=== PATIENT | female | born 1955 | race Caucasian/White ===

== ENCOUNTER 2021-04-24 10:03 | Inpatient (IN) | payer MEDICARE, BC ==
[2021-04-24] MEDS ORDERED: Albuterol/Ipratropium 3.0-0.5 MG/3 ML Neb Soln NEB ONE (10:15)
[2021-04-24] MEDS ORDERED: methylPREDNISolone Sodium Succinate 125 MG/2 ML SDV IVPUSH ONE (10:15)
--- NOTE | 2021-04-24 10:33 | EDM.PDOC ---
ED HPI GENERAL MEDICAL PROBLEM - General Chief Complaint: Respiratory Problem Stated Complaint: AMBULANCE Time Seen by Provider: 04/24/21 10:10 Source of Information: Reports: Patient, Provider (Nunu Gordon NP), RN, RN Notes Reviewed History Limitations: Reports: No Limitations - History of Present Illness INITIAL COMMENTS - FREE TEXT/NARRATIVE: Esau is a 66 y/o female who presents to the ED from [facility] at the request of her PCP for productive cough and hypoxia. The patient reports her symptoms began 6 days ago and have maintained in that time. She tested negative for COVID today and the clinic, but was noted to have oxygen saturation of 84 on RA while in the clinic. She denies chest pain, but notes she was experiencing some chest discomfort last week. She attest to shortness of breath and abdominal pain with cough. She denies fever, shaking chills sore throat, congestion, palpitations, dyspepsia, nausea, or vomiting. She has taken no PRN medications for her symptoms. She does not take inhalers or nebulizers. The patient attest to smoking approximately one pack per day; she notes a reduction in her habit since her symptoms started. She denies alcohol or recreational drug use. - Related Data Allergies Allergy/AdvReac Type Severity Reaction Status Date / Time paroxetine [From Paxil] Allergy Diarrhea Verified 04/24/21 13:22 Sulfa (Sulfonamide Allergy Hives Verified 04/24/21 13:22 Antibiotics) Home Meds: Home Meds Ascorbic Acid [Vitamin C] 1,000 mg PO DAILY 04/24/21 [History] Biotin 5 mg PO DAILY 04/24/21 [History] Celecoxib [CeleBREX] 200 mg PO BID PRN 04/24/21 [History] Cholecalciferol (Vitamin D3) [Vitamin D3] 5,000 unit PO DAILY 04/24/21 [History] Metoprolol Tartrate 50 mg PO BID 04/24/21 [History] Mv-Mn/Folic AC/Calcium/Vit K1 [Women 50 Plus Multivit Adv Tab] 1 each PO DAILY 04/24/21 [History] Oxybutynin Chloride [Oxybutynin Chloride ER] 10 mg PO DAILY 04/24/21 [History] Pantoprazole Sodium [Protonix] 40 mg PO DAILY 04/24/21 [History] Pravastatin [Pravachol] 20 mg PO DAILY 04/24/21 [History] Pravastatin [Pravachol] 40 mg PO DAILY 04/24/21 [History] Rivaroxaban [Xarelto] 10 mg PO DAILY 04/24/21 [History] Past Medical History HEENT History: Reports: None Cardiovascular History: Reports: High Cholesterol, Hypertension, Other (See Below) Other Cardiovascular History: anticoagulation Respiratory History: Reports: None Gastrointestinal History: Reports: None Genitourinary History: Reports: None REAL ESTATE PROCESSOR History: Reports: None Psychiatric History: Reports: None Oncologic (Cancer) History: Reports: None - Infectious Disease History Infectious Disease History: Reports: None - Past Surgical History Head Surgeries/Procedures: Reports: None Musculoskeletal Surgical History: Reports: Arthroscopic Knee Social & Family History - Tobacco Use Tobacco Use Status *Q: Heavy Tobacco User Years of Tobacco use: 30 Packs/Tins Daily: 1 - Recreational Drug Use Recreational Drug Use: No ED ROS GENERAL - Review of Systems Review Of Systems: Comprehensive ROS is negative, except as noted in HPI. ED EXAM, GENERAL - Physical Exam Exam: See Below Exam Limited By: No Limitations General Appearance: Alert, No Apparent Distress, Obese Eye Exam: Bilateral Eye: EOMI, Normal Inspection, PERRL (3mm) Ears: Normal External Exam, Normal Canal, Hearing Grossly Normal, Normal TMs Nose: Normal Inspection, Normal Mucosa, No Blood Throat/Mouth: Normal Voice, No Airway Compromise. No: Normal Oropharynx (Dry mucous membranes) Head: Atraumatic, Normocephalic Neck: Normal Inspection, Supple, Non-Tender, Full Range of Motion. No: Lymphadenopathy (L), Lymphadenopathy (R) Respiratory/Chest: Chest Non-Tender, Respiratory Distress (1-2 words while speaking), Rhonchi, Wheezing (Expiratory diffuse), Accessory Muscle Use. No: No Accessory Muscle Use, Stridor, Retractions, Splinting, Prolonged Expiration Cardiovascular: Normal Peripheral Pulses, Regular Rate, Rhythm, No Gallop, No JVD, No Murmur. No: No Edema Peripheral Pulses: 2+: Radial (L), Radial (R) GI/Abdominal: Normal Bowel Sounds, Non-Tender, No Distention, No Abnormal Bruit, No Mass, Pelvis Stable (Female) Exam: Deferred Rectal (Female) Exam: Deferred Back Exam: Normal Inspection, Full Range of Motion Extremities: Normal Range of Motion, Non-Tender, Normal Capillary Refill, Pedal Edema (Trace bilaterally) Neurological: Alert, Oriented, CN II-XII Intact, Normal Cognition, Normal Gait, Normal Reflexes, No Motor/Sensory Deficits Psychiatric: Normal Affect, Normal Mood Skin Exam: Warm, Dry, Intact, Normal Color, No Rash. No: Cyanosis, Ecchymosis, Erythema, Jaundice, Mottled, Pallor, Petechiae Lymphatic: No Adenopathy #1 Interpretation EKG Date: 04/24/21 Time: 10:23 Rhythm: NSR Rate (Beats/Min): 67 Tony: Normal P-Wave: Present QRS: Normal ST-T: Normal QT: Normal NC/PQ Interval: 0.156 Comparison: NA - No Prior EKG EKG Interpretation Comments: NSR; No evidence of acute myocardial ischemia Course - Vital Signs Last Recorded V/S: Last Vital Signs Temp 96.6 F L 04/25/21 08:56 Pulse 92 04/25/21 08:56 Resp 20 04/25/21 08:56 BP 102/52 L 04/25/21 08:56 Pulse Ox 92 L 04/25/21 08:56 - Orders/Labs/Meds Orders: Active Orders 24 hr Category Date Time Status Admission Diagnosis [ADT] Stat ADT 04/24/21 12:19 Ordered Admission Status [Patient Status] [ADT] Routine ADT 04/24/21 12:19 Active Medication Orders Acetaminophen (Acetaminophen 325 Mg Tab) 650 mg PO Q4H PRN PRN Reason: Pain (Mild 1-3)/fever Albuterol/Ipratropium (Albuterol/Ipratropium 3.0-0.5 Mg/3 Ml Neb Soln) 3 ml NEB Q4HRRT [facility], 1928–1983 Admin: 04/25/21 07:24 Dose: 3 ml Documented by: Admin: 04/25/21 03:39 Dose: 3 ml Documented by: Admin: 04/24/21 23:06 Dose: 3 ml Documented by: Admin: 04/24/21 18:48 Dose: 3 ml Documented by: Admin: 04/24/21 14:33 Dose: 3 ml Documented by: DAYNA Celecoxib (Celecoxib 100 Mg Cap) 200 mg PO BID PRN PRN Reason: Pain Furosemide (Furosemide 20 Mg/2 Ml Vial) 20 mg IVPUSH Q8H [facility] Last Admin: 04/25/21 03:48 Dose: 20 mg Documented by: Admin: 04/24/21 19:56 Dose: 20 mg Documented by: NERIS Azithromycin 500 mg/ Sodium (Chloride) 250 mls @ 250 mls/hr IV Q24H [facility] Last Admin: 04/24/21 14:17 Dose: 250 mls/hr Documented by: DAYNA Ceftriaxone Sodium 1 gm/ (Sodium Chloride) 50 mls @ 100 mls/hr IV Q24H [facility] Methylprednisolone Sodium Succinate (Methylprednisolone Sodium Succinate 40 Mg/1 Ml Sdv) 80 mg IVPUSH Q8H [facility] Last Admin: 04/25/21 03:40 Dose: 80 mg Documented by: Admin: 04/24/21 19:50 Dose: 80 mg Documented by: NERIS Miscellaneous Information (Check Nicotine Patch) 1 ea TRDERM BEDTIME [facility] Last Admin: 04/24/21 21:07 Dose: 1 ea Documented by: NERIS Nicotine (Nicotine 14 Mg/24 Hr Patch) 14 mg TRDERM DAILY PRN PRN Reason: Nicotine withdrawal Last Admin: 04/24/21 21:05 Dose: 14 mg Documented by: NERIS Ondansetron HCl (Ondansetron 4 Mg/2 Ml Sdv) 4 mg IVPUSH Q4H PRN PRN Reason: Nausea/Vomiting Oxybutynin Chloride (Oxybutynin 5 Mg Tab.Er) 10 mg PO DAILY [facility] Last Admin: 04/25/21 08:38 Dose: 10 mg Documented by: URI Pantoprazole Sodium (Pantoprazole 40 Mg Tab.Cr) 40 mg PO ACBREAKFAST [facility] Last Admin: 04/25/21 05:05 Dose: 40 mg Documented by: NERIS Pneumococcal Polyvalent Vaccine (Pneumococcal Polyvalent-23 Vaccine 0.5 Ml Sdv) 0.5 ml IM .ONCE ONE Stop: 04/24/21 14:06 Pravastatin Sodium (Pravastatin 20 Mg Tab) 60 mg PO DAILY [facility] Last Admin: 04/25/21 08:38 Dose: 60 mg Documented by: URI Rivaroxaban (Rivaroxaban 10 Mg Tab) 10 mg PO DAILY [facility] Last Admin: 04/25/21 08:38 Dose: 10 mg Documented by: ESPEWAN Sodium Chloride (Sodium Chloride 0.9% 10 Ml Syringe) 10 ml FLUSH ASDIRECTED PRN PRN Reason: Keep Vein Open Last Admin: 04/25/21 03:40 Dose: 10 ml Documented by: Admin: 04/24/21 19:50 Dose: 10 ml Documented by: NERIS Labs: Laboratory Tests 04/24/21 04/24/21 04/24/21 Range/Units 10:18 10:18 10:18 WBC 9.3 (5.0-10.0) 10^3/uL RBC 3.84 L (4.2-5.4) 10^6/uL Hgb 14.3 (12.0-16.0) g/dL Hct 42.5 (37.0-47.0) % MCV 110.7 H (80-100) fL MCH 37.2 H (27.0-34.0) pg MCHC 33.6 (33.0-35.0) g/dL Plt Count 137 L (150-450) 10^3/uL Neut % (Auto) 72.5 (42.2-75.2) % Lymph % (Auto) 16.9 L (20.5-50.1) % [place] % (Auto) 9.1 H (2-8) % Eos % (Auto) 1.1 (1.0-3.0) % Baso % (Auto) 0.4 (0.0-1.0) % Sodium 139 (136-145) mmol/L Potassium 4.1 (3.5-5.1) mmol/L Chloride 98 (98-107) mmol/L Carbon Dioxide 38 H (21-32) mmol/L Anion Gap 7.1 (7-13) mEq/L BUN 7 (7-18) mg/dL Creatinine 0.63 (0.55-1.02) mg/dL Est Cr Clr Drug Dosing TNP Estimated GFR (MDRD) > 60 BUN/Creatinine Ratio 11.1 (No establ ref range) Glucose 114 H (70-99) mg/dL Lactic Acid 0.9 (0.4-2.0) mmol/L Calcium 8.5 (8.5-10.1) mg/dL Magnesium (1.8-2.4) mg/dL Total Bilirubin 0.7 (0.2-1.0) mg/dL AST 30 (15-37) U/L ALT 54 (14-59) U/L Alkaline Phosphatase 78 (46-116) U/L Troponin I High Sens 33 (<=51) pg/mL C-Reactive Protein 23.5 H (0.0-0.9) mg/dL B-Natriuretic Peptide 145 H (0-100) pg/ml Total Protein 6.7 (6.4-8.2) g/dL Albumin 3.0 L (3.4-5.0) g/dL Globulin 3.7 Albumin/Globulin Ratio 0.81 Vitamin B12 (193-986) pg/mL Folate (8.6-58.9) ng/mL Free T4 (0.76-1.46) ng/dL TSH, Ultra Sensitive (0.36-3.74) uIU/mL 04/24/21 Range/Units 10:18 WBC (5.0-10.0) 10^3/uL RBC (4.2-5.4) 10^6/uL Hgb (12.0-16.0) g/dL Hct (37.0-47.0) % MCV (80-100) fL MCH (27.0-34.0) pg MCHC (33.0-35.0) g/dL Plt Count (150-450) 10^3/uL Neut % (Auto) (42.2-75.2) % Lymph % (Auto) (20.5-50.1) % [place] % (Auto) (2-8) % Eos % (Auto) (1.0-3.0) % Baso % (Auto) (0.0-1.0) % Sodium (136-145) mmol/L Potassium (3.5-5.1) mmol/L Chloride (98-107) mmol/L Carbon Dioxide (21-32) mmol/L Anion Gap (7-13) mEq/L BUN (7-18) mg/dL Creatinine (0.55-1.02) mg/dL Est Cr Clr Drug Dosing Estimated GFR (MDRD) BUN/Creatinine Ratio (No establ ref range) Glucose (70-99) mg/dL Lactic Acid (0.4-2.0) mmol/L Calcium (8.5-10.1) mg/dL Magnesium 1.9 (1.8-2.4) mg/dL Total Bilirubin (0.2-1.0) mg/dL AST (15-37) U/L ALT (14-59) U/L Alkaline Phosphatase (46-116) U/L Troponin I High Sens (<=51) pg/mL C-Reactive Protein (0.0-0.9) mg/dL B-Natriuretic Peptide (0-100) pg/ml Total Protein (6.4-8.2) g/dL Albumin (3.4-5.0) g/dL Globulin Albumin/Globulin Ratio Vitamin B12 319 (193-986) pg/mL Folate > 20.0 (8.6-58.9) ng/mL Free T4 1.55 H (0.76-1.46) ng/dL TSH, Ultra Sensitive 2.59 (0.36-3.74) uIU/mL Meds: Medications Generic Name Dose Route Start Last Admin Trade Name Freq PRN Reason Stop Dose Admin Acetaminophen 650 mg 04/24/21 12:55 Acetaminophen 325 Mg Tab PO Q4H PRN Pain (Mild 1-3)/fever Albuterol/Ipratropium 3 ml 04/24/21 15:00 04/25/21 07:24 Albuterol/Ipratropium 3.0-0.5 Mg/3 Ml Neb Soln NEB 3 ml Q4HRRT SANJAY Administration Celecoxib 200 mg 04/24/21 13:40 Celecoxib 100 Mg Cap PO BID PRN Pain Furosemide 20 mg 04/24/21 20:00 04/25/21 03:48 Furosemide 20 Mg/2 Ml Vial IVPUSH 20 mg Q8H SANJAY Administration Azithromycin 500 mg/ Sodium 250 mls @ 250 mls/hr 04/24/21 13:00 04/24/21 14:17 Chloride IV 250 mls/hr Q24H SANJAY Administration Ceftriaxone Sodium 1 gm/ 50 mls @ 100 mls/hr 04/25/21 12:00 Sodium Chloride IV Q24H SANJAY Methylprednisolone Sodium Succinate 80 mg 04/24/21 20:00 04/25/21 03:40 Methylprednisolone Sodium Succinate 40 Mg/1 Ml Sdv IVPUSH 80 mg Q8H SANJAY Administration Miscellaneous Information 1 ea 04/24/21 21:00 04/24/21 21:07 Check Nicotine Patch TRDERM 1 ea BEDTIME SANJAY Administration Nicotine 14 mg 08/23/21 12:59 04/24/21 21:05 Nicotine 14 Mg/24 Hr Patch TRDERM 14 mg DAILY PRN Administration Nicotine withdrawal Ondansetron HCl 4 mg 04/24/21 12:55 Ondansetron 4 Mg/2 Ml Sdv IVPUSH Q4H PRN Nausea/Vomiting Oxybutynin Chloride 10 mg 04/25/21 09:00 04/25/21 08:38 Oxybutynin 5 Mg Tab.Er PO 10 mg DAILY SANJAY Administration Pantoprazole Sodium 40 mg 04/25/21 06:00 04/25/21 05:05 Pantoprazole 40 Mg Tab.Cr PO 40 mg ACBREAKFAST SANJAY Administration Pneumococcal Polyvalent Vaccine 0.5 ml 04/24/21 14:05 Pneumococcal Polyvalent-23 Vaccine 0.5 Ml Sdv IM 04/24/21 14:06 .ONCE ONE Pravastatin Sodium 60 mg 04/25/21 09:00 04/25/21 08:38 Pravastatin 20 Mg Tab PO 60 mg DAILY SANJAY Administration Rivaroxaban 10 mg 04/25/21 09:00 04/25/21 08:38 Rivaroxaban 10 Mg Tab PO 10 mg DAILY SANJAY Administration Sodium Chloride 10 ml 04/24/21 12:55 04/25/21 03:40 Sodium Chloride 0.9% 10 Ml Syringe FLUSH 10 ml ASDIRECTED PRN Administration Keep Vein Open Discontinued Medications Generic Name Dose Route Start Last Admin Trade Name Freq PRN Reason Stop Dose Admin Albuterol/Ipratropium 3 ml 04/24/21 10:15 04/24/21 10:28 Albuterol/Ipratropium 3.0-0.5 Mg/3 Ml Neb Soln NEB 04/24/21 10:16 3 ml ONETIME ONE Administration Furosemide 10 mg 04/24/21 11:20 04/24/21 11:45 Furosemide 20 Mg/2 Ml Vial IVPUSH 04/24/21 11:21 10 mg ONETIME ONE Administration Ceftriaxone Sodium 1 gm/ 50 mls @ 100 mls/hr 04/24/21 12:17 04/24/21 12:32 Sodium Chloride IV 04/24/21 12:46 100 mls/hr ONETIME ONE Administration Iopamidol 100 ml 04/24/21 17:39 04/24/21 17:58 Iopamidol 755 Mg/Ml 100 Ml Bottle IVPUSH 04/24/21 17:40 83 ml ONETIME ONE Administration Methylprednisolone Sodium Succinate 125 mg 04/24/21 10:15 04/24/21 10:35 Methylprednisolone Sodium Succinate 125 Mg/2 Ml Sdv IVPUSH 04/24/21 10:16 125 mg ONETIME ONE Administration Methylprednisolone Sodium Succinate 40 mg 04/24/21 16:00 04/24/21 16:44 Methylprednisolone Sodium Succinate 40 Mg/1 Ml Sdv IVPUSH 40 mg Q8HR SANJAY Administration Non-Formulary Medication 40 mg 04/25/21 09:00 Pravastatin Sodium PO DAILY SANJAY - Radiology Interpretation Free Text/Narrative:: [facility] [place] [facility] Final Radiology Report Call: [phone] assistance Online chat: [email or web address] Name: ESAU VALLADARES Age: 66Years F Date: 04/24/2021 SSN: -- : [id number] Study: CR CHEST 1V FRONTAL Requesting Physician: Andreea Simmons Images: 1 Addl Studies: Provided Clinical History: Shortness of breath; Hypoxia; Productive cough Contrast: Contrast Medium: Contrast Amount: Contrast Method: CONFIDENTIALITY STATEMENT This report is intended only for use by the referring physician, and only in accordance with law. If you received this in error, call [phone]. Page 1 of 1 PROCEDURE INFORMATION: Exam: XR Chest Exam date and time: 04/24/2021 10:20 AM Age: 66 years old Clinical indication: Cough and shortness of breath; Additional info: Shortness of breath; Hypoxia; Productive cough TECHNIQUE: Imaging protocol: XR of the chest. Views: 1 view. COMPARISON: No relevant prior studies available. FINDINGS: Lungs: Poor inspiration. Decreased lung volumes. Bibasilar airspace disease which could be due to atelectasis or pneumonia. Pleural spaces: No pleural effusion or pneumothorax. Heart/Mediastinum: The cardiac silhouette is not enlarged. The mediastinal contours are normal. Bones/joints: Prior proximal left humeral ORIF with a side plate and screws. IMPRESSION: Bibasilar atelectasis versus pneumonia. Thank you for allowing us to participate in the care of your patient. Dictated and Authenticated by: Abrahan Edgar MD 04/24/2021 10:34 AM Central Time ([place] & [place]) - Re-Assessments/Exams Free Text/Narrative Re-Assessment/Exam: 04/24/21 Solu-Medrol 125mg IVP and DuoNeb administered. Labs pending. CXR obtained. Patient continues with oxygen saturation high 80s-low 90s on 2L of O2 via NC, increased to 4L Lasix 10mg IVP administered for bibasilar atelectasis, trace pedal edema, and slightly elevated BNP. Will administer Rocephin 1gm empirically. Case discussed with Dr. Mccann who kindly accepted patient for admission. Findings of examination, lab work, imaging, and conversation with Dr. Mccann reviewed with patient and . Patient and verbalized understanding and agreement with the plan of care. Departure - Departure Time of Disposition: 12:20 Disposition: Admitted As Inpatient 66 Condition: Fair Clinical Impression: Hypoxia, Atelectasis of both lungs, Elevated C-reactive protein (CRP), Cigarette smoker - Discharge Information - My Orders Last 24 Hours: My Active Orders 04/24/21 12:19 Admission Diagnosis [ADT] Stat Admission Status [Patient Status] [ADT] Routine - Assessment/Plan Last 24 Hours: My Active Orders 04/24/21 12:19 Admission Diagnosis [ADT] Stat Admission Status [Patient Status] [ADT] Routine
[2021-04-24 10:47] LABS: ANION GAP 7.1 mEq/L (7-13); CHLORIDE,CL 98 mmol/L (98-107); SODIUM,NA 139 mmol/L (136-145)
[2021-04-24] MEDS ORDERED: Furosemide 20 MG/2 ML VIAL IVPUSH ONE (11:20)
[2021-04-24] MEDS ORDERED: cefTRIAXone 1 GM in Sodium Chloride 0.9% 50 ML IV ONE (12:17)
[2021-04-24] MEDS ORDERED: Acetaminophen 325 MG Tab PO PRN (12:55)
[2021-04-24] MEDS ORDERED: Ondansetron 4 MG/2 ML SDV IVPUSH PRN (12:55)
[2021-04-24] MEDS ORDERED: Nicotine 14 MG/24 Hr Patch TRDERM PRN (12:59)
--- NOTE | 2021-04-24 13:07 | PCM.SN.2 ---
- Free Text/Narrative Note: START OF DOCTOR BARRIE HISTORY AND PHYSICAL / CONSULTATION NOTE Chief Complaint: "I was feeling sick" History of Present Illness: The patient is a 6-year-old female who was directed to the emergency department after being seen in the clinic because of feeling unwell. Upon further questioning the patient Hero that she started feeling unwell approximately 6 days prior to hospitalization at which point time she developed upper respiratory symptoms. She states that she scheduled an appointment with the [facility] upon feeling unwell and was seen by them on this morning of April 24, 2021. After being seen in the clinic she was directed to the emergency department because it was noted that she was hypoxic. Since the time of feeling unwell, the patient admits to rigors, cough which is nonproductive, wheeze, abdominal pain secondary to her cough as well as diarrhea. She denies fever, nausea, vomiting, myalgia, any new peripheral edema, anosmia, dysgeusia. She presents for further evaluation Surgical History: Bilateral cataract surgery, left ankle surgery, left knee surgery, right knee surgery, left shoulder surgery Family History: Cancer, diabetes, coronary artery disease, hypertension, hyperlipidemia Social History: Tobacco: Active smoker Alcohol: Patient drinks 5 drinks 5 days/week. Denies a history of withdrawal Caffeine: Coffee, cola, tea Drugs: Past marijuana use. Denies any other drug use past or present Allergies: Paxil consult Code Status: Full Pertinent Laboratory Results / Pertinent Radiology Results / Pertinent Diagnostic Results / Pertinent Vital Signs: Blood pressure 113/55, pulse 69, respirations 20, temperature 90.1 degrees, patient saturating 94% 2 L, platelet count 107,000, MCV 110.7 Physical Examination: General: -Alert -No acute distress -No dyspnea -No tachypnea -Obese Head: -Atraumatic -Normocephalic Eyes: -Pupils equally round and reactive to light and accommodation -Extraocular muscles intact Neurological: -Cranial nerves II-XII intact Neck: -No jugular venous distention -No thyromegaly -No cervical lymphadenopathy Heart: -Regular rate -Regular rhythm -No murmurs -No gallops -No rubs Lungs: -Bilateral wheeze -No rhonchi -No rales Abdomen: -Normal bowel sounds in all four quadrants -No rebound -No guarding -No tenderness Extremities: -2/4 pulse in all four extremities -No clubbing -No cyanosis -Nonpitting bipedal edema -No calf tenderness present bilaterally -Negative Homans sign bilaterally Musculoskeletal: -5/5 bilateral upper extremity strength -5/5 bilateral lower extremity strength -Sensorium of bilateral upper extremities are equal and intact -Sensorium of bilateral lower extremities are equal and intact Additional Details / Additional Findings / Exceptions / Miscellaneous: Assessment / Plan: Query pneumonia. Azithromycin 500 mg IV daily plus Rocephin 1 g IV daily plus neb every 4 hours Query COPD. The patient has never been formally diagnosed but she has an extensive smoking history. Solu-Medrol 40 mg IV every 8 hours plus DuoNeb every 4 hours Alcohol abuse/overuse. Seizure precautions. If patient exhibits signs/symptoms of withdrawal, I will initiate IV as needed Ativan per CIWA scale Thrombocytopenia. This likely sequelae of her history of alcohol use/overuse. We will monitor platelet count intermittently. Macrocytosis. This likely a sequelae of her history of alcohol use/abuse. Check TSH, free T4, B12, folate Overactive bladder History of DVT GERD. Protonix 40 mg daily Hyperlipidemia Hypertension. Lasix 20 mg IV every 8 hours Obesity. Patient becomes regarding left eye modification Smoker. Patient becomes regarding smoking cessation Peripheral edema. Will monitor patient on telemetry and checks her cardiac enzymes. Daily weight. Strict I's/O. Lasix 20 mg IV every 8 hours. Echocardiogram pending DVT prophylaxis. Bilateral CD Disposition: Anticipate discharge within 24 hours. At the time of mission, the patient's home medications were pending input to the EMR/DHR system. Once their input, they will be reviewed and reconciled END OF DOCTOR EMAMIS HISTORY AND PHYSICAL / CONSULTATION NOTE
[2021-04-24] MEDS ORDERED: Celecoxib 100 MG Cap PO PRN (13:40)
[2021-04-24] MEDS ORDERED: Pneumococcal Polyvalent-23 Vaccine 0.5 ML SDV IM ONE (14:05)
[2021-04-24] MEDS: Azithromycin 500 MG in Sodium Chloride 0.9% 250 ML IV SCH (14:17)
[2021-04-24] MEDS: Albuterol/Ipratropium 3.0-0.5 MG/3 ML Neb Soln NEB SCH ×3 (14:33→23:06)
[2021-04-24] MEDS ORDERED: methylPREDNISolone Sodium Succinate 40 MG/1 ML SDV IVPUSH SCH (16:00)
[2021-04-24 17:23] LABS: O2 DELIVERY DEVICE NASAL CANNULA; PCO2 ARTERIAL 52 mmHg (35-45); PO2 ARTERIAL 63 mmHg (70-100)
[2021-04-24 17:24] LABS: ALLEN TEST POSITIVE; BASE EXCESS ARTERIAL 8 mmol/L ((-2)-(+3)); BICARBONATE,ARTERIAL 33.9 mmol/L (22-26); O2 SATURATION ARTERIAL 89 % (95-100)
[2021-04-24] MEDS ORDERED: Iopamidol 755 Mg/ML 100 ML Bottle IVPUSH ONE (17:39)
--- NOTE | 2021-04-24 18:18 | CT ---
PROCEDURE INFORMATION: Exam: CT Chest With Contrast; Diagnostic Exam date and time: 04/24/2021 5:52 PM Age: 66 years old Clinical indication: Other: Hypoxia, pneumo; Additional info: CT angiogram chest: R/O pe: Dx: Hypoxia, pneumo TECHNIQUE: Imaging protocol: Diagnostic computed tomography of the chest with contrast. Radiation optimization: All CT scans at this facility use at least one of these dose optimization techniques: automated exposure control; mA and/or kV adjustment per patient size (includes targeted exams where dose is matched to clinical indication); or iterative reconstruction. Contrast material: ISOVUE 370; Contrast volume: 83 ml; Contrast route: INTRAVENOUS (IV); COMPARISON: CR Chest 1V Frontal 04/24/2021 10:20 AM FINDINGS: Lungs: Evaluation of the lung parenchyma is somewhat limited due to respiratory motion artifact. There is focal consolidation with air bronchograms in the left lower lobe. There is a thick band of discoid atelectasis in the right middle lobe. There are ground-glass opacities in the right lower lobe. The central airways appear patent. No worrisome pulmonary nodules or masses are identified. Pleural spaces: There are no pleural effusions. There is no pneumothorax. Heart: The heart size is normal. There is no evidence of right ventricular strain. There is no pericardial effusion. There are moderate coronary artery calcifications. Pulmonary arteries: There is excellent opacification of the pulmonary arteries. No MIP projections or volume rendered post processing images were obtained, but there is no convincing evidence for pulmonary embolism. Aorta: The thoracic aorta is normal in caliber and contour. There is no evidence of aneurysm or dissection. Lymph nodes: There are mildly enlarged mediastinal and hilar lymph nodes measuring up to 14 mm in diameter. These are likely reactive. Liver: The liver appears enlarged. There is diffuse fatty infiltration of the liver. Bones/joints: There is normal alignment in the visualized portion of the spine. There has been previous surgical fixation of the proximal left humerus. No acute fractures or aggressive bone lesions are identified. There is an old fracture deformity of the right 9th rib. Soft tissues: The soft tissues are within normal limits. IMPRESSION: 1. No pulmonary embolism is identified. 2. Left lower lobe consolidation suspicious for infectious pneumonia. There is tight atelectasis of the right middle lobe and there are additional patchy areas of probable pneumonitis in the right lower lobe. Fatty infiltration of the liver, a finding which can be due to benign steatosis versus alcoholic or non alcoholic steatohepatitis.
[2021-04-24 19:13] LABS: CORONAVIRUS COVID-19 NAA NEGATIVE (NEGATIVE)
[2021-04-24] MEDS: Sodium Chloride 0.9% 10 ML Syringe FLUSH PRN (19:50)
[2021-04-24] MEDS: methylPREDNISolone Sodium Succinate 40 MG/1 ML SDV IVPUSH SCH (19:50)
[2021-04-24] MEDS: Furosemide 20 MG/2 ML VIAL IVPUSH SCH (19:56)
[2021-04-25] MEDS: Albuterol/Ipratropium 3.0-0.5 MG/3 ML Neb Soln NEB SCH ×5 (03:39→18:45)
[2021-04-25] MEDS: Sodium Chloride 0.9% 10 ML Syringe FLUSH PRN (03:40)
[2021-04-25] MEDS: methylPREDNISolone Sodium Succinate 40 MG/1 ML SDV IVPUSH SCH ×2 (03:40→12:00)
[2021-04-25] MEDS: Furosemide 20 MG/2 ML VIAL IVPUSH SCH ×2 (03:48→11:56)
[2021-04-25] MEDS ORDERED: Pantoprazole 40 MG Tab.CR PO SCH (06:00)
[2021-04-25 06:30] LABS: ANION GAP 6.9 mEq/L (7-13); CHLORIDE,CL 101 mmol/L (98-107); SODIUM,NA 146 mmol/L (136-145)
--- NOTE | 2021-04-25 07:11 | PCM.SN.2 ---
- Free Text/Narrative Note: START OF DOCTOR EMAMIS PROGRESS NOTE Subjective: The patient currently rates her respiratory status as an 8 out of 10 at times her baseline. She denies fever, rigors, nausea, vomiting, cough, wheeze, abdominal pain, chest pain. Upon questioning, she indicates that her legs feel less edematous. I explained to the patient her current medical condition and plan of care and I have answered all of her questions Objective: General: -Somnolent bordering stuporous -No acute distress -No dyspnea -No tachypnea -Obese Heart: -iRegular rate -Regular rhythm -No murmurs -No gallops -No rubs Lungs: -Scant bilateral wheeze -Bilateral rhonchi -No rales Abdomen: -Normal bowel sounds in all four quadrants -No rebound -No guarding -No tenderness Extremities: -2/4 pulse in all four extremities -No clubbing -No cyanosis -Nonpitting bipedal edema improved compared with my examination on April 24, 2021 Additional Details / Additional Findings / Exceptions / Miscellaneous: Pertinent Laboratory Results / Pertinent Radiology Results / Pertinent Diagnostic Results / Pertinent Vital Signs: Heart rate 104 bpm, patient saturating 90% on 5 L Assessment / Plan: Query pneumonia. Azithromycin 500 mg IV daily plus Rocephin 1 g IV daily plus neb every 4 hours Query COPD. The patient has never been formally diagnosed but she has an extensive smoking history. Solu-Medrol 80 mg IV every 8 hours plus DuoNeb every 4 hours Alcohol abuse/overuse. Seizure precautions. If patient exhibits signs/symptoms of withdrawal, I will initiate IV as needed Ativan per CIWA scale Thrombocytopenia. This likely sequelae of her history of alcohol use/overuse. We will monitor platelet count intermittently. Macrocytosis. This likely a sequelae of her history of alcohol use/abuse. Check TSH, free T4, B12, folate Overactive bladder. Oxybutynin ER 10 mg p.o. daily History of DVT. Xarelto 10 mg p.o. daily GERD. Protonix 40 mg daily Hyperlipidemia. Pravastatin 60 mg p.o. nightly Arthritis. Celebrex 200 mg p.o. twice daily Hepatic steatosis Hypertension. Lasix 20 mg IV every 8 hours Obesity. Patient becomes regarding left eye modification Smoker. Patient becomes regarding smoking cessation Peripheral edema. Will monitor patient on telemetry and checks her cardiac enzymes. Daily weight. Strict I's/O. Lasix 20 mg IV every 8 hours. Echocardiogram pending DVT prophylaxis. Xarelto 10 mg p.o. daily Disposition: Anticipate discharge in 48 to 72 hours END OF DOCTOR EMAMIS PROGRESS NOTE
[2021-04-25 07:12] LABS: O2 DELIVERY DEVICE NASAL CANNULA
[2021-04-25 07:13] LABS: ALLEN TEST POSITIVE; BASE EXCESS ARTERIAL 11 mmol/L ((-2)-(+3)); BICARBONATE,ARTERIAL 41.1 mmol/L (22-26); O2 SATURATION ARTERIAL 92 % (95-100); PCO2 ARTERIAL 86 mmHg (35-45); PO2 ARTERIAL 69 mmHg (70-100)
[2021-04-25] MEDS ORDERED: Non-Formulary Medication 1 Each (Pravastatin Sodium 40 MG Tablet) PO SCH (09:00)
[2021-04-25] MEDS ORDERED: Oxybutynin 5 MG Tab.ER PO SCH (09:00)
[2021-04-25] MEDS ORDERED: Pravastatin 20 MG Tab PO SCH (09:00)
[2021-04-25] MEDS ORDERED: Rivaroxaban 10 MG Tab PO SCH (09:00)
[2021-04-25 10:27] LABS: ALLEN TEST POSITIVE; BASE EXCESS ARTERIAL 12 mmol/L ((-2)-(+3)); BICARBONATE,ARTERIAL 38.8 mmol/L (22-26); O2 DELIVERY DEVICE BIPAP; O2 SATURATION ARTERIAL 92 % (95-100); PCO2 ARTERIAL 61 mmHg (35-45); PO2 ARTERIAL 67 mmHg (70-100)
[2021-04-25] MEDS ORDERED: cefTRIAXone 1 GM in Sodium Chloride 0.9% 50 ML IV SCH (12:00)
[2021-04-25 12:47] LABS: ALLEN TEST POSITIVE; BASE EXCESS ARTERIAL 13 mmol/L ((-2)-(+3)); BICARBONATE,ARTERIAL 40.1 mmol/L (22-26); O2 DELIVERY DEVICE BIPAP; O2 SATURATION ARTERIAL 86 % (95-100); PCO2 ARTERIAL 60 mmHg (35-45); PO2 ARTERIAL 52 mmHg (70-100)
[2021-04-25] MEDS: Azithromycin 500 MG in Sodium Chloride 0.9% 250 ML IV SCH (13:39)
[2021-04-25] MEDS ORDERED: Aspirin 81 MG Tab.Chew PO SCH (16:30)
[2021-04-25 17:48] LABS: ALLEN TEST POSITIVE; BASE EXCESS ARTERIAL 13 mmol/L ((-2)-(+3)); BICARBONATE,ARTERIAL 37.7 mmol/L (22-26); O2 DELIVERY DEVICE NASAL CANNULA; O2 SATURATION ARTERIAL 95 % (95-100); PCO2 ARTERIAL 45 mmHg (35-45); PO2 ARTERIAL 73 mmHg (70-100)
--- NOTE | 2021-04-25 18:19 | CT ---
PROCEDURE INFORMATION: Exam: CT Chest Without Contrast; Diagnostic Exam date and time: 04/25/2021 5:57 PM Age: 66 years old Clinical indication: Other: Hypoxia; Additional info: Hypoxia- high res chest TECHNIQUE: Imaging protocol: Diagnostic computed tomography of the chest without contrast. Radiation optimization: All CT scans at this facility use at least one of these dose optimization techniques: automated exposure control; mA and/or kV adjustment per patient size (includes targeted exams where dose is matched to clinical indication); or iterative reconstruction. COMPARISON: CT Chest w Cont, Chest w Cont 04/24/2021 5:52 PM FINDINGS: Lungs: Progression of now total atelectasis of left lower lobe. There is mucoid material within multiple left lower lobe bronchi now. Linear bands of atelectasis right lung base. Partial atelectasis of posterior margin of lingula again noted. No significant interstitial lung disease. Pleural spaces: Unremarkable. No pneumothorax. No pleural effusion. Heart: Unremarkable. No cardiomegaly. No pericardial effusion. Aorta: Unremarkable. No aortic aneurysm. Lymph nodes: Scattered mediastinal lymph nodes unchanged. Bones/joints: Unremarkable. No acute fracture. Soft tissues: Unremarkable. IMPRESSION: Progression of now total left lower lobe atelectasis with increasing mucoid material in multiple left lower lobe bronchi. Consider possible aspiration event. No significant interstitial lung disease.
--- NOTE | 2021-04-25 18:50 | PCM.SN.2 ---
- Free Text/Narrative Note: START OF DOCTOR EMAMIS DISCHARGE SUMMARY Date of Admission: April 24, 2021 Date of transfer: 6:46 PM on April 05, 2021 Primary Diagnosis: Hypoxia secondary to possibly undiagnosed COPD/emphysema given patient's extensive smoking history and/or minor pneumonia and/or cystic fibrosis as the patient has a son who carries his diagnosis Secondary Diagnosis: Query pneumonia Query COPD/edema given patient's extensive smoking history Query cystic fibrosis Alcohol abuse/overuse Thrombocytopenia, likely sequelae of her history of alcohol abuse/overuse Macrocytosis, likely sequelae of her history of alcohol abuse/overuse with TSH, free T4, B12, and folate levels within normal Overactive bladder History of DVT GERD Hyperlipidemia Hypertension Obesity Smoker Peripheral edema for which patient will require echocardiogram Arthritis Hepatic steatosis Coronary artery disease Consultations: None Condition on transfer: Fair Disposition: The patient will be transferred to [facility] care of Dr. Whipple, Hospitalist. The patient is being transferred with a request for evaluation by pulmonology given findings on CT chest high resolution without contrast and concern for previously undiagnosed cystic fibrosis for which the patient may require bronchoscopy. Upon transfer, it is recommended that the patient undergo echocardiogram given her degree of peripheral edema for which she has been diuresed during this hospitalization. Upon discharge from hospital, it is rec ommended that the patient receive referral to cardiology for cardiac stress testing as coronary artery disease is noted on her CT angiogram of the chest and because of her cardiac risk factors Discharge Medications: Protonix 40 mg p.o. daily Multivitamin 1 tab p.o. daily Vitamin D 5000 IU p.o. daily Vitamin C 1000 mg p.o. daily Rocephin 1 g IV daily started April 24, 2021 Azithromycin 500 mg IV daily started April 24, 2021 Xarelto 10 mg p.o. daily DuoNeb every 4 hours Pravastatin 60 mg p.o. nightly Oxybutynin ER 10 mg p.o. daily Nicotine patch 14 mg daily as needed nicotine withdrawal Solu-Medrol 80 mg IV every 8 hours Lasix 20 mg IV every 8 hours Celebrex 200 mg p.o. twice daily Aspirin 81 mg p.o. daily END OF DOCTOR EMAMIS DISCHARGE SUMMARY
== END 2021-04-25 19:21 | DRG 194 ==
LOC: DL.ED 10:03 → DL.MS 12:40
PROVIDERS: ADMIT Internal Medicine; ATTEND Internal Medicine
DX: R09.02 Hypoxemia (principal); J98.11 Atelectasis; R79.82 Elevated C-reactive protein (CRP); J18.9 Pneumonia, unspecified organism; E78.00 Pure hypercholesterolemia, unspecified; E84.9 Cystic fibrosis, unspecified; Z68.41 Body mass index [BMI] 40.0-44.9, adult; F10.10 Alcohol abuse, uncomplicated; Z79.01 Long term (current) use of anticoagulants; Z79.899 Other long term (current) drug therapy; J43.9 Emphysema, unspecified; D69.6 Thrombocytopenia, unspecified; D75.89 Other specified diseases of blood and blood-forming organs; N32.81 Overactive bladder; K21.9 Gastro-esophageal reflux disease without esophagitis; E78.5 Hyperlipidemia, unspecified; I10 Essential (primary) hypertension; E66.9 Obesity, unspecified; F17.210 Nicotine dependence, cigarettes, uncomplicated; M19.90 Unspecified osteoarthritis, unspecified site; K76.0 Fatty (change of) liver, not elsewhere classified; I25.10 Atherosclerotic heart disease of native coronary artery without angina pectoris; R60.0 Localized edema; Z98.41 Cataract extraction status, right eye; Z98.42 Cataract extraction status, left eye; Z98.890 Other specified postprocedural states; Z88.2 Allergy status to sulfonamides; Z88.8 Allergy status to other drugs, medicaments and biological substances; Z20.822 Contact with and (suspected) exposure to COVID-19
CPT/HCPCS: 0240U; 36415; 36600; 71045; 71250; 71260; 80048; 80053; 82607; 82746; 82803; 83605; 83735; 83880; 84439; 84443; 84484; 85025; 86140; 93005; 94640; 94660; 96374; 96375; 99285-25; A9270-GY; J0456; J0696; J1940; J2920; J2930; J7050; J7620-GY; Q9967

== ENCOUNTER 2021-05-06 14:51 | Emergency (ER) | payer MEDICARE, BC ==
[2021-05-06] MEDS ORDERED: Sodium Chloride 0.9% 10 ML Syringe FLUSH PRN (15:01)
[2021-05-06] MEDS ORDERED: Ondansetron 4 MG/2 ML SDV IV ONE ×2 (15:02→17:22)
[2021-05-06] MEDS ORDERED: HYDROmorphone 0.5 MG/0.5 ML Syringe IVPUSH ONE (15:03)
[2021-05-06 15:42] LABS: PTT,PARTIAL THROMBOPLSTIN TIME 19.4 SEC (22.0-34.0)
[2021-05-06 15:52] LABS: ANION GAP 8.4 mEq/L (7-13); CHLORIDE,CL 94 mmol/L (98-107); SODIUM,NA 137 mmol/L (136-145)
[2021-05-06] MEDS ORDERED: Iopamidol 612 MG/ML 100 ML Bottle IVPUSH ONE (16:05)
--- NOTE | 2021-05-06 16:55 | CT ---
PROCEDURE INFORMATION: Exam: CT Abdomen And Pelvis With Contrast Exam date and time: 05/06/2021 4:18 PM Age: 66 years old Clinical indication: Nausea and vomiting and other: Wbc 16,400; Additional info: Ruq pain radiates to RT upper back, t-bile 1.2 TECHNIQUE: Imaging protocol: Computed tomography of the abdomen and pelvis with contrast. Radiation optimization: All CT scans at this facility use at least one of these dose optimization techniques: automated exposure control; mA and/or kV adjustment per patient size (includes targeted exams where dose is matched to clinical indication); or iterative reconstruction. Contrast material: [id number]; Contrast volume: 100 ml; Contrast route: INTRAVENOUS (IV); COMPARISON: None is available. FINDINGS: Lungs: Dense, consolidative airspace disease in the lung bases bilaterally, dependent in location, most likely representing atelectasis. Liver: Fatty infiltration of the liver. Gallbladder and bile ducts: Tiny gallstone. Mild gallbladder dilatation. No CT evidence of acute cholecystitis. Pancreas: Findings suspicious for mild acute pancreatitis. There is peripancreatic fat stranding and fluid, mild in degree and diffuse in nature. There is a small amount of fluid in the retroperitoneum on the left. No focal peripancreatic fluid collection. Spleen: No significant abnormality. Adrenal glands: No significant abnormality. Kidneys and ureters: No acute abnormality. Stomach and bowel: Colonic diverticulosis, with no evidence of acute diverticulitis. No acute abnormality of the small bowel. No acute abnormality of the stomach or duodenum. Appendix: Appendix is seen, and is within normal limits in appearance. Intraperitoneal space: No evidence of free air or free fluid. Vasculature: No evidence of abdominal aortic aneurysm or dissection. Lymph nodes: No evidence of diffuse pathologic lymphadenopathy. Urinary bladder: No significant abnormality. Reproductive: No acute abnormality of the uterus. No evidence of large adnexal masses. Bones/joints: Mild anterior subluxation of L4 over L5. This is most likely degenerative in etiology, as there are degenerative changes at this level. Bony structures appear demineralized. No acute bony abnormality. Soft tissues: Focal fluid in the posterior subcutaneous fat, in the lumbar region. Most likely, this represents dependent soft tissue edema. IMPRESSION: 1. Findings suspicious for mild acute pancreatitis. 2. Otherwise, no significant acute abnormality. 3. Cholelithiasis, with no evidence of cholecystitis. 4. See above for remaining chronic and/or incidental findings.
[2021-05-06] MEDS ORDERED: HYDROmorphone 1 MG/ML Syringe IVPUSH ONE (17:22)
--- NOTE | 2021-05-06 17:22 | EDM.PDOC ---
"Scribed by Brittney Seals 05/06/21 [id number] for Matias Hebert MD ED HPI GENERAL MEDICAL PROBLEM - General Chief Complaint: General Stated Complaint: CHEST PAINS Time Seen by Provider: 05/06/21 15:00 Source of Information: Reports: Patient, Family (), Old Records, RN, RN Notes Reviewed History Limitations: Reports: No Limitations - History of Present Illness INITIAL COMMENTS - FREE TEXT/NARRATIVE: Patient arrives to ED by POV with c/o RUQ abdominal pain with nausea and vomiting. The pain radiates to the Rt chest, and around and up the right back to the shoulder blade area. The pain began this morning about 3 hours after she last ate. Denies shortness of breath, substernal CP, diarrhea, lightheadedness, or syncope. Onset: Today, Gradual Duration: Constant Location: Reports: Abdomen Quality: Reports: Ache, Pressure Severity: Severe Improves with: Reports: None Worsens with: Reports: None Associated Symptoms: Reports: No Other Symptoms Right Chest Pain Score (Numeric/FACES): 9 - Related Data Allergies Allergy/AdvReac Type Severity Reaction Status Date / Time paroxetine [From Paxil] Allergy Diarrhea Verified 04/24/21 13:22 Sulfa (Sulfonamide Allergy Hives Verified 04/24/21 13:22 Antibiotics) Home Meds: Home Meds Ascorbic Acid [Vitamin C] 1,000 mg PO DAILY 04/24/21 [History] Celecoxib [CeleBREX] 200 mg PO BID PRN 04/24/21 [History] Cholecalciferol (Vitamin D3) [Vitamin D3] 5,000 unit PO DAILY 04/24/21 [History] Mv-Mn/Folic AC/Calcium/Vit K1 [Women 50 Plus Multivit Adv Tab] 1 each PO DAILY 04/24/21 [History] Oxybutynin Chloride [Oxybutynin Chloride ER] 10 mg PO DAILY 04/24/21 [History] Pantoprazole Sodium [Protonix] 40 mg PO DAILY 04/24/21 [History] Albuterol/Ipratropium [DuoNeb 3.0-0.5 MG/3 ML] 3 ml NEB Q4HRRT neb 04/25/21 [Rx] Aspirin 81 mg PO WITHBREAKFAST tab.chew 04/25/21 [Rx] Azithromycin [Zithromax] 500 mg IV Q24H vial 04/25/21 [Rx] Furosemide [Lasix] 20 mg IVPUSH Q8H vial 04/25/21 [Rx] Nicotine [Habitrol] 14 mg TRDERM DAILY PRN patch 04/25/21 [Rx] Pravastatin [Pravachol] 60 mg PO DAILY tablet 04/25/21 [Rx] Rivaroxaban [Xarelto] 10 mg PO DAILY tablet 04/25/21 [Rx] cefTRIAXone [Rocephin] 1 gm IV Q24H vial 04/25/21 [Rx] methylPREDNISolone Sod Succ [Solu-MEDROL] 80 mg IVPUSH Q8H sdv 04/25/21 [Rx] Past Medical History HEENT History: Reports: None Cardiovascular History: Reports: High Cholesterol, Hypertension, Other (See Below) Other Cardiovascular History: anticoagulation Respiratory History: Reports: COPD (Home oxygen use), SOB Gastrointestinal History: Reports: GERD Genitourinary History: Reports: None [employer] History: Reports: Musculoskeletal History: Reports: Osteoarthritis Psychiatric History: Reports: None Oncologic (Cancer) History: Reports: None - Infectious Disease History Infectious Disease History: Reports: None - Past Surgical History Head Surgeries/Procedures: Reports: None HEENT Surgical History: Reports: None GI Surgical History: Reports: Colonoscopy Musculoskeletal Surgical History: Reports: Arthroscopic Knee Social & Family History - Family History Family Medical History: No Pertinent Family History - Tobacco Use Tobacco Use Status *Q: Former Tobacco User Tobacco Use Within Last Twelve Months: Cigarettes - Caffeine Use Caffeine Use: Reports: Coffee, Soda, Tea - Living Situation & Occupation Living situation: Reports: , with Spouse Occupation: Retired ED ROS GENERAL - Review of Systems Review Of Systems: Comprehensive ROS is negative, except as noted in HPI. ED EXAM, GENERAL - Physical Exam Exam: See Below Exam Limited By: No Limitations General Appearance: Alert, No Apparent Distress, Anxious, Obese, Other (Chronically ill appearing) Eye Exam: Bilateral Eye: Normal Inspection Nose: Normal Inspection Throat/Mouth: Normal Lips, Normal Voice, No Airway Compromise Head: Atraumatic, Normocephalic Neck: Normal Inspection Respiratory/Chest: No Respiratory Distress, Lungs Clear, No Accessory Muscle Use, Chest Non-Tender, Decreased Breath Sounds Cardiovascular: Regular Rate, Rhythm, No Edema GI/Abdominal: Normal Bowel Sounds, Soft, No Distention, Guarding, Tender (RUQ tenderness with positive Gonzalez's sign). No: Rigid, Rebound Back Exam: No: CVA Tenderness (L), CVA Tenderness (R), Vertebral Tenderness Extremities: Normal Inspection, No Pedal Edema, Normal Capillary Refill Neurological: Alert, Oriented, No Motor/Sensory Deficits Psychiatric: Normal Affect, Anxious Skin Exam: Warm, Dry, Intact, Normal Color, No Rash #1 Interpretation EKG Date: 05/06/21 Time: 15:02 Rhythm: Other (sinus rhythm) Rate (Beats/Min): 71 Isabella: Normal P-Wave: Present QRS: Normal ST-T: Normal QT: Normal Course - Vital Signs Last Recorded V/S: Last Vital Signs Temp 97.1 F 05/06/21 15:00 Pulse 72 05/06/21 15:00 Resp 22 H 05/06/21 15:00 BP 177/103 H 05/06/21 15:00 Pulse Ox 95 05/06/21 15:00 - Orders/Labs/Meds Orders: Active Orders 24 hr Category Date Time Status Peripheral IV Care [RC] . DIRECTED Care 05/06/21 15:02 Active CORONAVIRUS COVID-19 MAGALIE [MOLEC] Stat Lab 05/06/21 17:01 Ordered CULTURE BLOOD [BC] Stat Lab 05/06/21 15:12 Received CULTURE BLOOD [BC] Stat Lab 05/06/21 15:13 Received Sodium Chloride 0.9% [Saline Flush] Med 05/06/21 15:01 Active 10 ml FLUSH ASDIRECTED PRN Blood Culture x2 Reflex Set [OM.PC] Stat Oth 05/06/21 15:01 Ordered Peripheral IV Insertion Adult [OM.PC] Stat Oth 05/06/21 15:02 Ordered Medication Orders Sodium Chloride (Sodium Chloride 0.9% 10 Ml Syringe) 10 ml FLUSH ASDIRECTED PRN PRN Reason: Keep Vein Open Last Admin: 05/06/21 15:24 Dose: 10 ml Documented by: BRIANA Labs: Laboratory Tests 05/06/21 05/06/21 05/06/21 Range/Units 15:12 15:12 15:12 WBC 16.3 H (5.0-10.0) 10^3/uL RBC 4.93 (4.2-5.4) 10^6/uL Hgb 17.6 H D (12.0-16.0) g/dL Hct 52.0 H (37.0-47.0) % MCV 105.5 H D (80-100) fL MCH 35.7 H (27.0-34.0) pg MCHC 33.8 (33.0-35.0) g/dL Plt Count 133 L (150-450) 10^3/uL Neut % (Auto) 85.2 H (42.2-75.2) % Lymph % (Auto) 9.0 L (20.5-50.1) % [place] % (Auto) 5.3 (2-8) % Eos % (Auto) 0.3 L (1.0-3.0) % Baso % (Auto) 0.2 (0.0-1.0) % Add Manual Diff Yes Neutrophils % (Manual) 88 H (42-75) % Band Neutrophils % 1 % Lymphocytes % (Manual) 6 L (20-50) % Monocytes % (Manual) 4 (2-8) % Eosinophils % (Manual) 1 (1-3) % Anisocytosis 1+ slight Macrocytosis 1+ slight PT 10.4 (9.0-12.0) SEC INR 1.0 (0.9-1.2) APTT 19.4 L (22.0-34.0) SEC Sodium 137 (136-145) mmol/L Potassium 3.4 L (3.5-5.1) mmol/L Chloride 94 L (98-107) mmol/L Carbon Dioxide 38 H (21-32) mmol/L Anion Gap 8.4 (7-13) mEq/L BUN 14 (7-18) mg/dL Creatinine 0.68 (0.55-1.02) mg/dL Est Cr Clr Drug Dosing 64.36 mL/min Estimated GFR (MDRD) > 60 BUN/Creatinine Ratio 20.6 (No establ ref range) Glucose 246 H (70-99) mg/dL Lactic Acid (0.4-2.0) mmol/L Calcium 8.6 (8.5-10.1) mg/dL Total Bilirubin 1.2 H (0.2-1.0) mg/dL AST 21 (15-37) U/L ALT 55 (14-59) U/L Alkaline Phosphatase 61 (46-116) U/L Troponin I High Sens 15 (<=51) pg/mL B-Natriuretic Peptide 17 (0-100) pg/ml Total Protein 6.2 L (6.4-8.2) g/dL Albumin 3.1 L (3.4-5.0) g/dL Globulin 3.1 Albumin/Globulin Ratio 1.00 Amylase 503 H (25-115) U/L Lipase > 2250 H (73-393) U/L 05/06/21 Range/Units 15:12 WBC (5.0-10.0) 10^3/uL RBC (4.2-5.4) 10^6/uL Hgb (12.0-16.0) g/dL Hct (37.0-47.0) % MCV (80-100) fL MCH (27.0-34.0) pg MCHC (33.0-35.0) g/dL Plt Count (150-450) 10^3/uL Neut % (Auto) (42.2-75.2) % Lymph % (Auto) (20.5-50.1) % [place] % (Auto) (2-8) % Eos % (Auto) (1.0-3.0) % Baso % (Auto) (0.0-1.0) % Add Manual Diff Neutrophils % (Manual) (42-75) % Band Neutrophils % % Lymphocytes % (Manual) (20-50) % Monocytes % (Manual) (2-8) % Eosinophils % (Manual) (1-3) % Anisocytosis Macrocytosis PT (9.0-12.0) SEC INR (0.9-1.2) APTT (22.0-34.0) SEC Sodium (136-145) mmol/L Potassium (3.5-5.1) mmol/L Chloride (98-107) mmol/L Carbon Dioxide (21-32) mmol/L Anion Gap (7-13) mEq/L BUN (7-18) mg/dL Creatinine (0.55-1.02) mg/dL Est Cr Clr Drug Dosing mL/min Estimated GFR (MDRD) BUN/Creatinine Ratio (No establ ref range) Glucose (70-99) mg/dL Lactic Acid 1.7 (0.4-2.0) mmol/L Calcium (8.5-10.1) mg/dL Total Bilirubin (0.2-1.0) mg/dL AST (15-37) U/L ALT (14-59) U/L Alkaline Phosphatase (46-116) U/L Troponin I High Sens (<=51) pg/mL B-Natriuretic Peptide (0-100) pg/ml Total Protein (6.4-8.2) g/dL Albumin (3.4-5.0) g/dL Globulin Albumin/Globulin Ratio Amylase (25-115) U/L Lipase (73-393) U/L Meds: Medications Generic Name Dose Route Start Last Admin Trade Name Freq PRN Reason Stop Dose Admin Sodium Chloride 10 ml 05/06/21 15:01 05/06/21 15:24 Sodium Chloride 0.9% 10 Ml Syringe FLUSH 10 ml ASDIRECTED PRN Administration Keep Vein Open Discontinued Medications Generic Name Dose Route Start Last Admin Trade Name Freq PRN Reason Stop Dose Admin Hydromorphone HCl 0.5 mg 05/06/21 15:03 05/06/21 15:20 Hydromorphone 0.5 Mg/0.5 Ml Syringe IVPUSH 05/06/21 15:04 0.5 mg ONETIME ONE Administration Iopamidol 100 ml 05/06/21 16:05 05/06/21 16:19 Iopamidol 612 Mg/Ml 100 Ml Bottle IVPUSH 05/06/21 16:06 100 ml ONETIME ONE Administration Ondansetron HCl 4 mg 05/06/21 15:02 05/06/21 15:18 Ondansetron 4 Mg/2 Ml Sdv IV 05/06/21 15:03 4 mg ONETIME ONE Administration - Radiology Interpretation Free Text/Narrative:: [facility] Final Radiology Report Call: [phone] assistance Online chat: [email or web address] Name: ESAU VALLADARES Age: 66Years F Date: 05/06/2021 SSN: -- : 1955 Study: CT ABDOMEN PELVIS W CONT Requesting Physician: MATIAS HEBERT Images: [id number] Addl Studies: Provided Clinical History: RUQ pain radiates to Rt upper back, T-bile 1.2 Contrast: With Contrast Medium: Contrast Amount: 100 mL Contrast Method: Intravenous (IV) Page 1 of 2 PROCEDURE INFORMATION: Exam: CT Abdomen And Pelvis With Contrast Exam date and time: 05/06/2021 4:18 PM Age: 66 years old Clinical indication: Nausea and vomiting and other: Wbc 16,400; Additional info: Ruq pain radiates to RT upper back, t-bile 1.2 TECHNIQUE: Imaging protocol: Computed tomography of the abdomen and pelvis with contrast. Radiation optimization: All CT scans at this facility use at least one of these dose optimization techniques: automated exposure control; mA and/or kV adjustment per patient size (includes targeted exams where dose is matched to clinical indication); or iterative reconstruction. Contrast material: [id number]; Contrast volume: 100 ml; Contrast route: INTRAVENOUS (IV); COMPARISON: None is available. FINDINGS: Lungs: Dense, consolidative airspace disease in the lung bases bilaterally, dependent in location, most likely representing atelectasis. Liver: Fatty infiltration of the liver. Gallbladder and bile ducts: Tiny gallstone. Mild gallbladder dilatation. No CT evidence of acute cholecystitis. Pancreas: Findings suspicious for mild acute pancreatitis. There is peripancreatic fat stranding and fluid, mild in degree and diffuse in nature. There is a small amount of fluid in the retroperitoneum on the left. No focal peripancreatic fluid collection. Spleen: No significant abnormality. Adrenal glands: No significant abnormality. Kidneys and ureters: No acute abnormality. ESAU VALLADARES | Final Radiology Report CONFIDENTIALITY STATEMENT This report is intended only for use by the referring physician, and only in accordance with law. If you received this in error, call [phone]. Page 2 of 2 Stomach and bowel: Colonic diverticulosis, with no evidence of acute diverticulitis. No acute abnormality of the small bowel. No acute abnormality of the stomach or duodenum. Appendix: Appendix is seen, and is within normal limits in appearance. Intraperitoneal space: No evidence of free air or free fluid. Vasculature: No evidence of abdominal aortic aneurysm or dissection. Lymph nodes: No evidence of diffuse pathologic lymphadenopathy. Urinary bladder: No significant abnormality. Reproductive: No acute abnormality of the uterus. No evidence of large adnexal masses. Bones/joints: Mild anterior subluxation of L4 over L5. This is most likely degenerative in etiology, as there are degenerative changes at this level. Bony structures appear demineralized. No acute bony abnormality. Soft tissues: Focal fluid in the posterior subcutaneous fat, in the lumbar region. Most likely, this represents dependent soft tissue edema. IMPRESSION: 1. Findings suspicious for mild acute pancreatitis. 2. Otherwise, no significant acute abnormality. 3. Cholelithiasis, with no evidence of cholecystitis. 4. See above for remaining chronic and/or incidental findings. Thank you for allowing us to participate in the care of your patient. Dictated and Authenticated by: Abbey Soriano MD 05/06/2021 4:55 PM Central Time ([place] & [place]) - Re-Assessments/Exams Free Text/Narrative Re-Assessment/Exam: 05/06/21 15:36 Echocardiogram done at [facility] in [place] on 05/04/21 showed an intracavity gradient is present. Ejection fraction = 65-70%. No regional wall motion abnormalities noted. The right ventricle is normal size. The left and right atrium are normal size. The tricuspid valve is normal. The aortic valve is trileaflet. The aortic valve opens well. The ascending aorta measures 3.6 in the AP diameter. There is no pericardial effusion. CTA chest pulmonary embolism without contrast done on 05/03/21 showed no pulmonary emboli although the distal pulmonary arterial tree is indeterminate. No aortic valve dissection. Bibasilar consolidations as mentioned above are favored to represent atelectasis. underlying pneumonia is possible. No pneumothorax or pleural effusion. No lymphadenopathy. Coronary artery calcification. Free Text/Narrative Re-Assessment/Exam: 05/06/21 17:19 No US available here today. No beds available in [facility] or [facility]. [facility] by Dr. Reyes. Departure - Departure Time of Disposition: 17:20 Disposition: DC/Tfer to Acute Hospital 02 Condition: Serious Clinical Impression: Acute pancreatitis Qualifiers: Pancreatitis type: unspecified pancreatitis type Acute pancreatitis complication: no infection or necrosis Qualified Code(s): K85.90 - Acute pancreatitis without necrosis or infection, unspecified Cholelithiasis Qualifiers: Cholelithiasis location: gallbladder Cholecystitis presence: without cholecystitis Biliary obstruction: without biliary obstruction Qualified Code(s): K80.20 - Calculus of gallbladder without cholecystitis without obstruction - Discharge Information *PRESCRIPTION DRUG MONITORING PROGRAM REVIEWED*: Not Applicable *COPY OF PRESCRIPTION DRUG MONITORING REPORT IN PATIENT [place]: Not Applicable Forms: ED Department Discharge, Interfacility Transfer EMTALA Sepsis Event Note (ED) - Focused Exam Vital Signs: Vital Signs Temp Pulse Resp BP Pulse Ox 05/06/21 15:00 97.1 F 72 22 H 177/103 H 95 - My Orders Last 24 Hours: My Active Orders 05/06/21 15:01 Sodium Chloride 0.9% [Saline Flush] 10 ml FLUSH ASDIRECTED PRN Blood Culture x2 Reflex Set [OM.PC] Stat 05/06/21 15:02 Peripheral IV Care [RC] . DIRECTED Peripheral IV Insertion Adult [OM.PC] Stat 05/06/21 15:12 CULTURE BLOOD [BC] Stat 05/06/21 15:13 CULTURE BLOOD [BC] Stat 05/06/21 17:01 CORONAVIRUS COVID-19 MAGALIE [MOLEC] Stat - Assessment/Plan Last 24 Hours: My Active Orders 05/06/21 15:01 Sodium Chloride 0.9% [Saline Flush] 10 ml FLUSH ASDIRECTED PRN Blood Culture x2 Reflex Set [OM.PC] Stat 05/06/21 15:02 Peripheral IV Care [RC] . DIRECTED Peripheral IV Insertion Adult [OM.PC] Stat 05/06/21 15:12 CULTURE BLOOD [BC] Stat 05/06/21 15:13 CULTURE BLOOD [BC] Stat 05/06/21 17:01 CORONAVIRUS COVID-19 MAGALIE [MOLEC] Stat I have read and agree with the documentation that has been completed regarding this visit. By signing this record, I attest that the documentation was comp leted in my physical presence and is an accurate record of the encounter."
== END 2021-05-06 17:55 ==
LOC: DL.ED 14:51
DX: K80.20 Calculus of gallbladder without cholecystitis without obstruction (principal); K85.90 Acute pancreatitis without necrosis or infection, unspecified; E78.00 Pure hypercholesterolemia, unspecified; I10 Essential (primary) hypertension; J44.9 Chronic obstructive pulmonary disease, unspecified; K21.9 Gastro-esophageal reflux disease without esophagitis; M19.90 Unspecified osteoarthritis, unspecified site; Z88.8 Allergy status to other drugs, medicaments and biological substances; Z88.2 Allergy status to sulfonamides; Z79.82 Long term (current) use of aspirin; Z79.01 Long term (current) use of anticoagulants; Z79.899 Other long term (current) drug therapy
CPT/HCPCS: 36415; 74177; 80053; 82150; 83605; 83690; 83880; 84484; 85025; 85610; 85730; 87040; 93005; 96374; 96375; 96376; 99285-25; J1170; J2405; Q9967; U0002